=== PATIENT | female | born 1990 | race African-American/Black ===

== ENCOUNTER 2022-07-05 09:12 | Emergency (ER) | payer BC, OTHER ==
[~2022-07-05] VITALS: Ht 165.1 cm; Wt 53.1 kg
[2022-07-05 09:25] VITALS: BP 154/90
[2022-07-05 09:55] LABS: Urine Bacteria NONE SEEN /hpf (None Seen); Urine Blood Negative /uL (Negative); Urine Mucus FEW (None Seen); Urine Specific Gravity 1.019 (1.001-1.035); Urine WBC 1 /hpf (0 - 5)
== END 2022-07-05 13:19 | disposition home or self-care (01) ==
LOC: ER 09:12
DX: O20.0 Threatened abortion (principal); Z3A.01 Less than 8 weeks gestation of pregnancy
CPT/HCPCS: 36415; 76801; 81001; 84702